=== PATIENT | female | born 1955 | race Caucasian/White ===

== ENCOUNTER 2019-01-30 11:59 | Emergency (ER) | payer OTHER ==
--- NOTE | 2019-01-30 12:14 | PDOC ---
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 Patient states that last week she was walking down a hill and slipped on leaves. She fell on her back and hurt her neck. She endorses upper neck pain but she did not lose consciousness. She denies weakness in the arms or legs, no numbness/tingling, imbalance, bladder retention or incontinence, back pain, headache, changes in vision. She states that she has been taking ibuprofen and muscle relaxants for the pain. She saw her orthopedists and had a cervical xray done which showed C1 fracture. Patient was sent here from Dr. Vu' office for CT scan of the cspine to determine stability of the fracture. Denies LOC since the fall, n/v. <Hayde Cee - Last Filed: 01/30/19 14:31> <Paz Miller - Last Filed: 01/30/19 15:00> - General Chief Complaint: Head/Neck problem Stated Complaint: C1 FRACTURE Time Seen by Provider: 01/30/19 12:03 Past History <Hayde Cee - Last Filed: 01/30/19 14:31> <Paz Miller - Last Filed: 01/30/19 15:00> - Past Medical History Allergies/Adverse Reactions: Allergies Allergy/AdvReac Type Severity Reaction Status Date / Time No Known Allergies Allergy Verified 01/30/19 12:09 Home Medications: Ambulatory Orders Cyclobenzaprine HCl [Flexeril 10 mg] 10 mg PO BID PRN 01/30/19 Ibuprofen [Advil -] 400 mg PO TID PRN 01/30/19 Lisinopril 5 mg PO DAILY 01/30/19 Rivaroxaban [Xarelto -] 20 mg PO DAILY 01/30/19 Sertraline HCl [Zoloft] 100 mg PO DAILY 01/30/19 Review of Systems - Review of Systems Constitutional: No: Symptoms Reported HEENTM: No: Symptoms Reported Respiratory: No: Symptoms reported Cardiac (ROS): No: Symptoms Reported ABD/GI: No: Symptoms Reported : No: Symptoms Reported Musculoskeletal: Yes: See HPI, Neck Pain. No: Back Pain, Joint Pain Integumentary: No: Symptoms Reported Neurological: No: Symptoms reported <Hayde Cee - Last Filed: 01/30/19 14:31> *Physical Exam - Physical Exam General Appearance: Yes: Nourished, Appropriately Dressed. No: Apparent Distress HEENT: positive: EOMI, JOON, Normal ENT Inspection Neck: positive: Trachea midline, Supple. negative: Lymphadenopathy (R), Lymphadenopathy (L) Respiratory/Chest: positive: Lungs Clear, Normal Breath Sounds Cardiovascular: positive: Regular Rhythm, Regular Rate. negative: Edema, JVD, Murmur Gastrointestinal/Abdominal: positive: Soft. negative: Tender Musculoskeletal: negative: CVA Tenderness, Vertebral Tenderness Extremity: positive: Normal Capillary Refill. 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 NML intact, Fully Oriented, Alert, Normal Mood/ Affect, Normal Response, Motor Strength 5/5 <Hayde Cee - Last Filed: 01/30/19 14:31> - Vital Signs Last Vital Signs Temp Pulse Resp BP Pulse Ox 98.5 F 85 14 136/84 99 01/30/19 14:25 01/30/19 14:25 01/30/19 14:25 01/30/19 14:25 01/30/19 13:41 <Paz Miller - Last Filed: 01/30/19 15:00> ED Treatment Course - RADIOLOGY Radiology Studies Ordered: Category Date Time Status CERVICAL SPINE CT W/O CONTR [CT] Stat CT Scan 01/30/19 12:04 Ordered <Hayde Cee - Last Filed: 01/30/19 14:31> - Medications Given in the ED: ED Medications Discontinued Medications Generic Name Dose Route Start Last Admin Trade Name Freq PRN Reason Stop Dose Admin Oxycodone/Acetaminophen 1 combo 01/30/19 13:37 01/30/19 13:42 Percocet 5/325 - PO 01/30/19 13:38 1 combo ONCE ONE Administration <Paz Miller - Last Filed: 01/30/19 15:00> Medical Decision Making - Medical Decision Making 01/30/19 14:31 63y F presenting for C1 fracture seen on xray. pt immediately placed in rigid collar. no neurological deficits. patient ambulatory in ED. given patient is on Xarelto, will also obtain CT head to r/o bleed. percocet for pain. CT head: no acute bleed or pathology. C-spine: Jamie fracture of C1. no odontoid fracture. no other cervical fractures. Patient's insurance only covers stay at [facility]. spoke to [facility], was asked to get NS on board prior to transfer. phone number for Dr. Hurd given. Called and LM. Dr. Hurd called back, he is neurovascular surgeon, gave contact number for Dr. Lundy ([phone] cell) Dr. Lundy contacted agrees to see patient with transfer. Advised to transfer to ED for NS consult. pt agrees to transfer, will send discs. Accepted for ED-ED transfer. <Hayde Cee - Last Filed: 01/30/19 14:31> Discharge - Discharge Information Problems reviewed: Yes - Admission No <Hayde Cee - Last Filed: 01/30/19 14:31> - Transfer to Acute Care Facility Accepting Physician:: Dr Lundy, [facility] <Paz Miller - Last Filed: 01/30/19 15:00> - Discharge Information Clinical Impression/Diagnosis: Jamie fracture Qualifiers: Encounter type: initial encounter Fracture type: closed Qualified Code(s): S12.01XA - Stable burst fracture of first cervical vertebra, initial encounter for closed fracture Condition: Stable Disposition: TRANSFER ACUTE CARE/OTHER HOSP - Follow up/Referral Referrals: Michael Colorado [Primary Care Provider] - - Patient Discharge Instructions - Post Discharge Activity
[2019-01-30 12:30] VITALS: BMI 24.3
--- NOTE | 2019-01-30 13:31 | PDOC ---
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 Patient states that last week she was walking down a hill and slipped on leaves, fell back and struck her head/neck at that time. She endorses upper neck pain but she did not lose consciousness. She denies weakness in the arms or legs, no numbness/tingling, imbalance, bladder retention or incontinence, back pain, headache, changes in vision. She states that she has been taking ibuprofen and muscle relaxants for the pain. She saw her orthopedists and had a cervical xray done which showed C1 fracture today. Patient was sent here from Dr. Vu' office for CT scan of the cspine to determine stability of the fracture. - Physicial Exam PE: 01/30/19 13:29 My MSK no acute distress, in c-collar, no midline C-spine tenderness. Extraocular muscles intact, pupils round and reactive to light. Deltoid sensation is intact, cranial nerves II through XII is also intact, 5/5 shoulder shrug, proximal and distal strength in all cavities 5/5. Sensation is grossly intact in all extremities from C1-T1. Moving all extremity's x4, warm and well- perfused, no skin discoloration. No chest wall tenderness, abdomen is soft and nontender, no respiratory distress breathing comfortably on room air. - Medical Decision Making 01/30/19 13:30 Vital Signs Temp Pulse Resp BP Pulse Ox 98.4 F 97 H 15 133/56 L 98 01/30/19 12:02 01/30/19 12:02 01/30/19 12:02 01/30/19 12:02 01/30/19 12:02 Differential diagnosis includes cervical spine fracture, intracranial bleed. Patient was sent upstairs from Dr. Vu office with x-ray findings concerning for C1 fracture. CT head is negative for intracranial bleed. CT cervical spine is notable for unstable Jamie's fracture, multiple fragments and displacements noted with the C1 ring. Patient is neurovascularly intact as documented. We will ReachOut to neurosurgery at [facility] for definitive neurosurgical evaluation and intervention. Patient remains in c-collar for mobilization. 01/30/19 14:20 PIV placed, reached [facility] for transfer, accepted by neurosurgeon agronomy professor Dr. Lundy contacted agrees to see patient with transfer. Advised to transfer to ED for NS consult. will transfer to the ED, consult NSG there pt and family consented to the transfer process for definitive management. pt's insurance covers procedures and care under [facility], so will send there. 01/30/19 14:59
[2019-01-30 13:42] VITALS: TEMP 98.5
[2019-01-30 14:30] VITALS: BP 136/84; PULSE 85
== END 2019-01-30 15:17 | disposition short-term general hospital (02) ==
LOC: FER 11:59
DX: S12.01XA Stable burst fracture of first cervical vertebra, initial encounter for closed fracture (principal); W18.39XA Other fall on same level, initial encounter; Y93.89 Activity, other specified; Y92.410 Unspecified street and highway as the place of occurrence of the external cause; I10 Essential (primary) hypertension; Z79.01 Long term (current) use of anticoagulants
CPT/HCPCS: 70450-TC; 72125-TC; 99284-25